=== PATIENT | female | born 1930 | race Caucasian/White ===

== ENCOUNTER 2016-10-27 06:46 | Emergency (ER) | payer MEDICARE, OTHER ==
--- NOTE | ~2016-10-27 | EKG ---
PATIENT: ARNALDO CAUSEY UNIT #: [id number] Ventricular Rate: 71 BPM Atrial Rate: 71 BPM P-R Interval: 158 ms QRS Duration: 66 ms Q-T Interval: 392 ms QTC Calculation(Bezet): 425 ms P [place]: 80 degrees Calculated R Durham: 50 degrees Calculated T Durham: 59 degrees Diagnosis Line: Normal sinus rhythm Diagnosis Line: Moderate voltage criteria for LVH, may be normal Diagnosis Line: variant Diagnosis Line: Borderline ECG Diagnosis Line: When compared with ECG of 06-MAR-2012 19:37, Diagnosis Line: No significant change was found Diagnosis Line: Confirmed by NATHEN NGUYEN MD ([id number]) on Diagnosis Line: 10/27/2016 8:23:37 AM INTERPRETING MD: WENDY OWENS
--- NOTE | ~2016-10-27 | CR72 ---
[facility] A Service of [facility] & [facility] / [facility] RADIOLOGY TEXT RESULTS PATIENT: ARNALDO CAUSEY LOCATION: [facility] : 28 UNIT #: [id number] AGE: [address]: Duncan Varma MD SEX: F ORDER DR: [id number] [facility] [address] [place], [place] [address] [id number] E MR#: [id number] Acc #: [id number] NAME: ARNALDO CAUSEY. : 1930 SEX: F STUDY DATE/TIME: 10/27/2016 8:10 UNIT: [facility] ROOM: STUDY DESCRIPTION: CR Chest Single View Portable Attending Physician: Duncan Varma M.D. Ordering Physician: Duncan Varma M.D. Primary Care Physician: Bill Farah M.D. MEDICAL IMAGING REPORT This report is preliminary unless electronic signature is present EXAM Portable chest radiograph INDICATION Altered mental status, hallucinations starting yesterday. 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 FINDINGS Comparison is made to prior exam from March 06, 2012. Cardiomegaly is identified. There is tortuosity of the thoracic aorta. Mediastinum appears more prominent on the current study however this is probably related to patient positioning as the patient is significantly more angled on the current exam. I do question some patchy infiltrates within the right lung. Followup exam to document resolution is recommended. Alternatively, they could be further characterized with CT. Background emphysematous changes are present. There is no pneumothorax or definite pleural effusions. Postsurgical changes are seen within the left axilla. Dictated by... Snajuana Cisneros M.D. THIS IS AN ELECTRONICALLY VERIFIED REPORT Sanjuana Cisneros M.D. at 10/28/2016 7:31 AM MAHENDRA/chantel TD: 10/27/2016 13:03 JOB #: [id number] MEDICAL IMAGING REPORT Page 1 of 1 COPY
[~2016-10-27 06:46] MED LIST: BENAZEPRIL HCTZ; KLOR-CON PO; TOPROL XL 50 MG50 MG PO
[2016-10-27 08:08] LABS: BASOPHIL% 0.5 % (0-2.5); EOSINOPHIL% 0.1 % (0.0-7.0); HEMATOCRIT 34.7 % (35.0-45.0); HEMOGLOBIN 11.6 gm/dL (12.0-16.0); LYMPHOCYTE# 0.6 X10e3 (1.0-3.5); LYMPHOCYTE% 8.1 % (17.0-45.0); MEAN CELL VOLUME 94.7 FL (83-96); MEAN CORPUSCULAR HEMOGLOBIN 31.6 PG (28-34); MEAN CORPUSCULAR HGB CONC 33.3 g/dL (30-36); MEAN PLATELET VOLUME 8.8 FL (6.5-11.5); MONOCYTE# 1.1 X10e3 (0-1.0); MONOCYTE% 15.1 % (3.0-12.0); NEUTROPHIL# 5.5 X10e3 (1.5-7.1); NEUTROPHIL% 76.2 % (40-75); PLATELET COUNT 176 X10e3 (140-420); RED BLOOD COUNT 3.67 X10e (3.90-5.30); RED CELL DISTRIBUTION WIDTH 14.3 % (11.0-15.5); WHITE BLOOD COUNT 7.2 X10e3 (4.0-10.5)
[2016-10-27 08:13] LABS: DIFF IND NO
[2016-10-27 08:26] LABS: POC - CKMB 2.5 ng/mL (0.0-7.9); POC - TROPONIN <0.05 ng/mL (<=0.05)
[2016-10-27 08:48] LABS: ALBUMIN SERUM 3.9 g/dL (3.5-5.0); BILIRUBIN, DIRECT 0.3 mg/dL (0.0-0.2); BILIRUBIN,INDIRECT 0.9 mg/dL (0.0-0.9); BILIRUBIN,TOTAL 1.2 mg/dL (0.2-2.0); BUN/CREATININE RATIO 24.28; CALCIUM SERUM 9.7 mg/dL (8.4-10.2); CREATININE SERUM 0.7 mg/dL (0.6-1.4); GLOM FILT RATE Estimated 77.9 mL/min (>60); POTASSIUM 4.2 mmol/L (3.5-5.1); PROTEIN TOTAL SERUM 6.4 g/dL (6.0-8.3)
[2016-10-27 08:50] LABS: URINE SOURCE CLEAN CATCH
[2016-10-27 08:55] LABS: URINE APPEARANCE CLOUDY; URINE BILIRUBIN NEG (NEG); URINE BLOOD TRACE (NEG); URINE COLOR YELLOW; URINE GLUCOSE NEG (NEG); URINE KETONE NEG (NEG); URINE LEUKOCYTE ESTERASE 1+ (NEG); URINE NITRATE POS (NEG); URINE PROTEIN TRACE (NEG); URINE SPECIFIC GRAVITY 1.017 (1.003-1.035)
[2016-10-27 08:57] LABS: URBCS1 AUWI 0-2 /[HPF] (0-2); URINE BACTERIA AUWI 4+ (NEGATIVE); URINE SQUAMOUS EPITHELIAL CELL NONE SEEN /[HPF]
== END 2016-10-27 11:00 | disposition short-term general hospital (02) ==
LOC: CED 06:46
PROVIDERS: Emergency Medicine
DX: R41.82 Altered mental status, unspecified (principal); N39.0 Urinary tract infection, site not specified; J44.9 Chronic obstructive pulmonary disease, unspecified; Z88.0 Allergy status to penicillin; Z88.2 Allergy status to sulfonamides; Z79.899 Other long term (current) drug therapy
CPT/HCPCS: 36415; 51701; 71010; 80048; 80076; 81003; 82553; 84484; 85025; 93005; 96361; 96365; 99285; J0696